=== PATIENT | female | born 1980 ===

== ENCOUNTER → 2016-09-24 21:55 | Emergency (ER) | payer SELFPAY ==
--- NOTE | ~2016-09-24 | EKG ---
PATIENT: ODALYS PATEL UNIT #: [id number] Ventricular Rate: 81 BPM Atrial Rate: 81 BPM P-R Interval: 212 ms QRS Duration: 90 ms Q-T Interval: 370 ms QTC Calculation(Bezet): 429 ms P Mcclave: 72 degrees Calculated R Mcclave: 31 degrees Calculated T Mcclave: 35 degrees Diagnosis Line: Sinus rhythm with 1st degree A-V block Diagnosis Line: Otherwise normal ECG Diagnosis Line: No previous ECGs available Diagnosis Line: Confirmed by YOUNG COPELAND MD ([id number]) on 09/26/2016 Diagnosis Line: 9:11:24 PM INTERPRETING MD: DINORAH JEFFERS
== END | disposition left against medical advice (07) ==
LOC: CED 21:55
DX: Z53.21 Procedure and treatment not carried out due to patient leaving prior to being seen by health care provider (principal)
CPT/HCPCS: 93005